=== PATIENT | male | born 1990 | race Caucasian/White ===

== ENCOUNTER 2018-01-16 21:54 | Emergency (ER) | payer SELFPAY ==
[~2018-01-16] VITALS: Ht 182.9 cm; Wt 97.7 kg
[2018-01-16 22:05] VITALS: BP 162/99; PULSE 66; TEMP 97
[2018-01-16] MEDS ORDERED: NORCO 325 MG-7.1 TAB PO (23:34)
[2018-01-16] MEDS ORDERED: AMOXICILLIN 50500 MG PO (23:34)
== END 2018-01-17 00:05 | disposition home or self-care (01) ==
LOC: COL.ER 21:54
DX: K02.9 Dental caries, unspecified (principal); F12.90 Cannabis use, unspecified, uncomplicated; F17.210 Nicotine dependence, cigarettes, uncomplicated

== ENCOUNTER 2018-09-11 13:51 | Emergency (ER) | payer SELFPAY ==
[~2018-09-11] VITALS: Ht 182.9 cm; Wt 104.5 kg
[~2018-09-11 13:51] MED LIST: AMOXICILLIN 50500 MG PO; NORCO 325 MG-7.1 TAB PO
[2018-09-11 14:02] VITALS: TEMP 98.4
[2018-09-11] MEDS ORDERED: ADVIL200 MG PO (14:05)
[2018-09-11] MEDS ORDERED: PEN-VEE K500 MG PO (14:42)
[2018-09-11] MEDS ORDERED: NORCO 325 MG-51 TAB PO (14:42)
[2018-09-11 15:00] VITALS: BP 155/108; PULSE 60
== END 2018-09-11 15:02 | disposition home or self-care (01) ==
LOC: COL.ER 13:51
DX: K08.89 Other specified disorders of teeth and supporting structures (principal); F17.210 Nicotine dependence, cigarettes, uncomplicated; F12.90 Cannabis use, unspecified, uncomplicated